=== PATIENT | male | born 1975 | race Caucasian/White ===

== ENCOUNTER → 2017-08-04 | Day surgery (SDC) | payer OTHER | LOC: MSO 09:21 | DX: Z12.11 Encounter for screening for malignant neoplasm of colon (principal); K21.9 Gastro-esophageal reflux disease without esophagitis; Z80.0 Family history of malignant neoplasm of digestive organs; K63.5 Polyp of colon; K62.1 Rectal polyp | CPT/HCPCS: 00810; A4649; J7120 ==

== ENCOUNTER → 2018-08-17 | Day surgery (SDC) | payer OTHER | LOC: MSO 12:51 | DX: K22.70 Barrett's esophagus without dysplasia (principal); K21.0 Gastro-esophageal reflux disease with esophagitis; Z79.899 Other long term (current) drug therapy | CPT/HCPCS: 00731; A4649; J2704; J7120 ==

== ENCOUNTER 2018-10-20 08:21 | Emergency (ER) | payer OTHER ==
[~2018-10-20] VITALS: Ht 180.3 cm; Wt 106.8 kg
[2018-10-20] MEDS ORDERED: CYCLOBENZAPRINE10 M1 PO (08:35)
[2018-10-20] MEDS ORDERED: PRILOSEC OTC20 MG PO (08:35)
[2018-10-20 09:15] LABS: HEMATOCRIT 50.5 % (42.0-52.0); MEAN CELL VOLUME 87 fl (78-100); MEAN CORPUSCULAR HEMOGLOBIN 29 pg (27-31); MEAN CORPUSCULAR HGB CONC 34 g/dL (33-37); MEAN PLATELET VOLUME 10.7 fl (7.4-10.4); PLATELET COUNT 261 K/mm3 (130-400); RED CELL DISTRIBUTION WIDTH 12.8 % (11.5-14.5); WHITE BLOOD COUNT 12.9 K/mm3 (4.8-10.8)
[2018-10-20 09:21] LABS: ALBUMIN 4.7 g/dL (3.5-5.0); CALCIUM 9.5 mg/dL (8.4-10.2); POTASSIUM 3.8 mmol/L (3.6-5.0); TOTAL BILIRUBIN 0.8 mg/dL (0.2-1.3)
[2018-10-20 09:29] LABS: LYMPHOCYTE 15 % (20-51); MONOCYTE 9 % (3-10); NEUTROPHILS 76 % (42-75)
[2018-10-20 10:00] LABS: URINE APPEARANCE CLOUDY; URINE BILIRUBIN NEGATIVE (NEGATIVE); URINE BLOOD NEGATIVE (NEGATIVE); URINE COLOR YELLOW; URINE GLUCOSE NEGATIVE (NEGATIVE); URINE KETONE 2+ (NEGATIVE); URINE NITRATE POSITIVE (NEGATIVE); URINE PROTEIN(semi-quant) TRACE mg/dL (NEGATIVE); URINE UROBILINOGEN NORMAL (NORMAL)
[2018-10-20 10:01] LABS: URINE LEUKOCYTE ESTERASE TRACE (NEGATIVE); URINE MUCUS PRESENT (NOT PRESENT); URINE WBC 31-50 /hpf (0-3)
[2018-10-20] MEDS ORDERED: NORCO 325 MG-51 TAB PO (10:42)
[2018-10-20] MEDS ORDERED: CIPRO500 M1 PO (10:42)
[2018-10-20 10:48] VITALS: BP 130/76
== END 2018-10-20 10:48 | disposition home or self-care (01) ==
LOC: ED 08:21
PROVIDERS: Physician Assistant
DX: S42.022A Displaced fracture of shaft of left clavicle, initial encounter for closed fracture (principal); K21.9 Gastro-esophageal reflux disease without esophagitis; Z90.49 Acquired absence of other specified parts of digestive tract; V68.5XXA Driver of heavy transport vehicle injured in noncollision transport accident in traffic accident, initial encounter; Y92.413 State road as the place of occurrence of the external cause
CPT/HCPCS: J3010; L0172

== ENCOUNTER 2018-12-31 09:00 | Outpatient (RCR) | payer OTHER ==
[~2018-12-31 09:00] MED LIST: CIPRO500 M1 PO; CYCLOBENZAPRINE10 M1 PO; NORCO 325 MG-51 TAB PO; PRILOSEC OTC20 MG PO
== END 2018-12-31 09:30 ==
LOC: PT 09:00
DX: S42.002A Fracture of unspecified part of left clavicle, initial encounter for closed fracture (principal)

== ENCOUNTER 2020-05-04 17:24 | Emergency (ER) | payer OTHER ==
[~2020-05-04] VITALS: Ht 182.9 cm; Wt 109.1 kg
[~2020-05-04 17:24] MED LIST changes: -BACTRIM DS 8001 TAB PO; -ZOFRAN ODT4 MG PO
[2020-05-04] MEDS ORDERED: BACTRIM DS 8001 TAB PO (17:33)
[2020-05-04 17:56] LABS: HEMATOCRIT 47.8 % (42.0-52.0); HEMOGLOBIN 16.3 g/dL (13.5-18.0); MEAN CELL VOLUME 86 fl (78-100); MEAN CORPUSCULAR HEMOGLOBIN 29 pg (27-31); MEAN CORPUSCULAR HGB CONC 34 g/dL (33-37); MEAN PLATELET VOLUME 10.3 fl (7.4-10.4); PLATELET COUNT 229 K/mm3 (130-400); RED BLOOD COUNT 5.59 M/mm3 (4.20-5.60); RED CELL DISTRIBUTION WIDTH 13.4 % (11.5-14.5); WHITE BLOOD COUNT 13.5 K/mm3 (4.8-10.8)
[2020-05-04 18:01] LABS: LYMPHOCYTE 5 % (20-51); MONOCYTE 6 % (3-10); NEUTROPHILS 88 % (42-75)
[2020-05-04 18:06] LABS: ALBUMIN 4.1 g/dL (3.5-5.0); POTASSIUM 3.7 mmol/L (3.5-5.1)
[2020-05-04 18:07] LABS: CALCIUM 8.7 mg/dL (8.3-10.5)
[2020-05-04 18:09] LABS: TOTAL PROTEIN 7.1 g/dL (6.4-8.3)
[2020-05-04 18:10] LABS: TOTAL BILIRUBIN 0.5 mg/dL (0.2-1.2)
[2020-05-04 18:38] LABS: URINE APPEARANCE CLEAR; URINE BILIRUBIN NEGATIVE (NEGATIVE); URINE BLOOD NEGATIVE (NEGATIVE); URINE COLOR YELLOW; URINE GLUCOSE NEGATIVE (NEGATIVE); URINE KETONE NEGATIVE (NEGATIVE); URINE LEUKOCYTE ESTERASE NEGATIVE (NEGATIVE); URINE MUCUS PRESENT (NOT PRESENT); URINE NITRATE NEGATIVE (NEGATIVE); URINE PROTEIN(semi-quant) 1+ mg/dL (NEGATIVE); URINE UROBILINOGEN NORMAL (NORMAL)
[2020-05-04] MEDS ORDERED: ZOFRAN ODT4 MG PO (20:11)
[2020-05-04 20:23] VITALS: BP 133/88
== END 2020-05-04 20:25 | disposition home or self-care (01) ==
LOC: ED 17:24
PROVIDERS: Family Medicine
DX: R53.81 Other malaise (principal); R19.7 Diarrhea, unspecified; R11.0 Nausea; W19.XXXA Unspecified fall, initial encounter; W22.8XXA Striking against or struck by other objects, initial encounter; Y92.321 Football field as the place of occurrence of the external cause
CPT/HCPCS: J7030

== ENCOUNTER → 2020-05-04 | Outpatient (CLI) | payer OTHER ==
[~2020-05-04] MED LIST changes: +BACTRIM DS 8001 TAB PO; +ZOFRAN ODT4 MG PO
[2020-05-04 08:23] LABS: URINE APPEARANCE HAZY; URINE BILIRUBIN NEGATIVE (NEGATIVE); URINE BLOOD TRACE (NEGATIVE); URINE COLOR YELLOW; URINE GLUCOSE NEGATIVE (NEGATIVE); URINE KETONE NEGATIVE (NEGATIVE); URINE LEUKOCYTE ESTERASE NEGATIVE (NEGATIVE); URINE MUCUS PRESENT (NOT PRESENT); URINE NITRATE NEGATIVE (NEGATIVE); URINE PROTEIN(semi-quant) NEGATIVE (NEGATIVE); URINE UROBILINOGEN NORMAL (NORMAL)
== END ==
LOC: LAB 08:12
PROVIDERS: Nurse Practitioner
DX: M54.9 Dorsalgia, unspecified (principal)

== ENCOUNTER → 2022-07-25 | Outpatient (CLI) | payer OTHER ==
[~2022-07-25] MED LIST changes: +BACTRIM DS 8001 TAB PO; +ZOFRAN ODT4 MG PO
[2022-07-25 09:12] LABS: BASO # 0.02 K/mm3 (0.02-0.10); EOS # 0.11 K/mm3 (0.04-0.40); EOS % 1.5 % (0.0-4.0); HEMATOCRIT 49.6 % (42.0-52.0); HEMOGLOBIN 16.5 g/dL (13.5-18.0); LYMPH# 2.38 K/mm3 (1.50-4.00); MEAN CELL VOLUME 89 fl (78-100); MEAN CORPUSCULAR HEMOGLOBIN 30 pg (27-31); MEAN CORPUSCULAR HGB CONC 33 g/dL (33-37); MEAN PLATELET VOLUME 10.4 fl (7.4-10.4); NEU # 4.34 K/mm3 (1.40-6.50); PLATELET COUNT 283 K/mm3 (130-400); RED BLOOD COUNT 5.58 M/mm3 (4.20-5.60); WHITE BLOOD COUNT 7.4 K/mm3 (4.8-10.8)
[2022-07-25 09:15] LABS: POTASSIUM 4.5 mmol/L (3.5-5.1)
[2022-07-25 09:16] LABS: ALBUMIN 4.3 g/dL (3.5-5.0)
[2022-07-25 09:17] LABS: CALCIUM 9.5 mg/dL (8.3-10.5)
[2022-07-25 09:18] LABS: TOTAL PROTEIN 7.4 g/dL (6.4-8.3)
[2022-07-25 09:20] LABS: TOTAL BILIRUBIN 0.5 mg/dL (0.2-1.2)
== END ==
LOC: LAB 08:42
PROVIDERS: Nurse Practitioner
DX: Z00.00 Encounter for general adult medical examination without abnormal findings (principal); Z13.6 Encounter for screening for cardiovascular disorders; E66.9 Obesity, unspecified; N64.4 Mastodynia; K22.70 Barrett's esophagus without dysplasia; N35.919 Unspecified urethral stricture, male, unspecified site

== ENCOUNTER → 2022-07-28 | Outpatient (CLI) | payer OTHER | LOC: MAMMO 07:28 | DX: N64.4 Mastodynia (principal) ==

== ENCOUNTER → 2023-10-07 | Outpatient (CLI) | payer OTHER ==
[2023-10-07 12:33] LABS: BASO # 0.03 K/mm3 (0.02-0.10); EOS # 0.17 K/mm3 (0.04-0.40); EOS % 1.7 % (0.0-4.0); HEMATOCRIT 50.8 % (42.0-52.0); HEMOGLOBIN 16.9 g/dL (13.5-18.0); LYMPH# 2.99 K/mm3 (1.50-4.00); MEAN CELL VOLUME 88 fl (78-100); MEAN CORPUSCULAR HEMOGLOBIN 29 pg (27-31); MEAN CORPUSCULAR HGB CONC 33 g/dL (33-37); NEU # 6.26 K/mm3 (1.40-6.50); PLATELET COUNT 251 K/mm3 (130-400); RED BLOOD COUNT 5.76 M/mm3 (4.20-5.60); RED CELL DISTRIBUTION WIDTH 13.3 % (11.5-14.5); WHITE BLOOD COUNT 10.3 K/mm3 (4.8-10.8)
[2023-10-07 12:44] LABS: ALBUMIN 4.4 g/dL (3.5-5.0)
[2023-10-07 12:45] LABS: CALCIUM 9.3 mg/dL (8.3-10.5)
[2023-10-07 12:46] LABS: TOTAL PROTEIN 6.9 g/dL (6.4-8.3)
[2023-10-07 12:49] LABS: PH-URINE 5.5 (5.0 - 8.0); URINE APPEARANCE CLEAR (CLEAR); URINE BILIRUBIN NEGATIVE (NEGATIVE); URINE BLOOD NEGATIVE (NEGATIVE); URINE COLOR YELLOW (YELLOW); URINE GLUCOSE NEGATIVE (NEGATIVE); URINE KETONE NEGATIVE (NEGATIVE); URINE LEUKOCYTE ESTERASE NEGATIVE (NEGATIVE); URINE NITRATE NEGATIVE (NEGATIVE); URINE PROTEIN(semi-quant) NEGATIVE (NEGATIVE)
[2023-10-07 12:50] LABS: URINE MUCUS PRESENT (NOT PRESENT); URINE WBC 0-1 /hpf (0-3)
[2023-10-07 13:14] LABS: TOTAL BILIRUBIN 0.5 mg/dL (0.2-1.2)
== END ==
LOC: LAB 12:12
PROVIDERS: Nurse Practitioner
DX: Z00.00 Encounter for general adult medical examination without abnormal findings (principal); N39.0 Urinary tract infection, site not specified

== ENCOUNTER → 2023-12-04 | Outpatient (CLI) | payer OTHER | LOC: RAD 08:02 | DX: M25.511 Pain in right shoulder (principal) ==

== ENCOUNTER → 2024-09-15 | Outpatient (CLI) | payer OTHER ==
[2024-09-15 09:05] LABS: URINE WBC 0 /hpf (0-3)
[2024-09-15 09:11] LABS: BASO # 0.02 K/mm3 (0.02-0.10); EOS # 0.11 K/mm3 (0.04-0.40); EOS % 1.5 % (0.0-4.0); HEMATOCRIT 49.5 % (42.0-52.0); HEMOGLOBIN 16.6 g/dL (13.5-18.0); LYMPH# 2.37 K/mm3 (1.50-4.00); MEAN CELL VOLUME 87 fl (78-100); MEAN CORPUSCULAR HEMOGLOBIN 29 pg (27-31); MEAN CORPUSCULAR HGB CONC 34 g/dL (33-37); MEAN PLATELET VOLUME 10.2 fl (7.4-10.4); MONO # 0.66 K/mm3 (0.20-0.80); NEU # 4.38 K/mm3 (1.40-6.50); PLATELET COUNT 271 K/mm3 (130-400); RED BLOOD COUNT 5.67 M/mm3 (4.20-5.60); RED CELL DISTRIBUTION WIDTH 12.8 % (11.5-14.5); WHITE BLOOD COUNT 7.6 K/mm3 (4.8-10.8)
[2024-09-15 09:19] LABS: ALBUMIN 4.3 g/dL (3.5-5.0)
[2024-09-15 09:20] LABS: CALCIUM 9.3 mg/dL (8.3-10.5)
[2024-09-15 09:21] LABS: TOTAL PROTEIN 7.2 g/dL (6.4-8.3)
[2024-09-15 09:23] LABS: TOTAL BILIRUBIN 0.3 mg/dL (0.2-1.2)
[2024-09-15 09:35] LABS: URINE APPEARANCE CLEAR (CLEAR); URINE BILIRUBIN NEGATIVE (NEGATIVE); URINE BLOOD NEGATIVE (NEGATIVE); URINE COLOR YELLOW (YELLOW); URINE GLUCOSE NEGATIVE (NEGATIVE); URINE KETONE NEGATIVE (NEGATIVE); URINE LEUKOCYTE ESTERASE NEGATIVE (NEGATIVE); URINE NITRATE NEGATIVE (NEGATIVE); URINE PROTEIN(semi-quant) NEGATIVE (NEGATIVE)
== END ==
LOC: LAB 08:56
PROVIDERS: Nurse Practitioner
DX: Z00.00 Encounter for general adult medical examination without abnormal findings (principal); E78.2 Mixed hyperlipidemia; Z76.89 Persons encountering health services in other specified circumstances

== ENCOUNTER → 2024-12-27 | Outpatient (CLI) | payer OTHER | LOC: LAB 07:46 | DX: R30.0 Dysuria (principal) ==